=== PATIENT | male | born 1990 | race African-American/Black ===

== ENCOUNTER 2021-02-05 00:57 | Emergency (ER) | payer MEDICAID ==
[~2021-02-05] VITALS: Ht 180.3 cm; Wt 73.9 kg
[2021-02-05 01:01] VITALS: BP 143/96
--- NOTE | 2021-02-05 01:20 | NUR ---
PT KARRI, TAKEN TO JOZEF GALARZA
[2021-02-05] MEDS ORDERED: NACL 0.9% 1,000 ML IV ONE (01:40)
[2021-02-05 02:15] LABS: BASOPHILS % (AUTO) 0.7 % (0.0-2.0); EOSINOPHILS # (AUTO) 0.2 K/uL (0-0.4); EOSINOPHILS % (AUTO) 3.6 % (0.0-4.0); HEMOGLOBIN 13.9 g/dL (12.0-18.0); LYMPHOCYTES # (AUTO) 1.3 K/uL (2.0-11.5); LYMPHOCYTES % (AUTO) 23.4 % (20.5-51.1); MEAN CORPUSCULAR HEMOGLOBIN 32 pg (27-31); MEAN CORPUSCULAR HGB CONC 34 g/dL (33-37); MEAN CORPUSCULAR VOLUME 94.1 fL (80-94); MONOCYTES # (AUTO) 0.4 K/uL (0.8-1.0); NEUTROPHILS # (AUTO) 3.6 K/uL (1.8-7.7); NEUTROPHILS % (AUTO) 65.3 % (42.2-75.2); PLATELET COUNT (AUTO) 273 K/uL (140-450); RED BLOOD CELL COUNT(AUTO) 4.36 MIL/uL (4.20-6.10); RED CELL DISTRIBUTION WIDTH 14.2 % (11.6-13.7); WHITE BLOOD COUNT (AUTO) 5.6 K/uL (4.8-10.8)
[2021-02-05 02:35] LABS: ALBUMIN 4.2 g/dL (3.4-5.0); ANION GAP 10.6 (8-16); CARBON DIOXIDE 27.1 mmol/L (21-32); CREATININE 1.1 mg/dL (0.6-1.3); POTASSIUM 3.7 mmol/L (3.5-5.1); TOTAL BILIRUBIN 0.8 mg/dL (0.0-1.0)
[2021-02-05] MEDS ORDERED: LAM25 PO (04:18)
[2021-02-05 06:25] VITALS: BP 143/96
--- NOTE | 2021-02-05 06:25 | NUR ---
Patient discharged with v/s stable. Written and verbal after care instructions given and explained. Patient alert, oriented and verbalized understanding of instructions. Ambulatory with steady gait. All questions addressed prior to discharge. ID band removed. Patient advised to follow up with PMD. Rx of LAMICTAL given. Patient educated on indication of medication including possible reaction and side effects. Opportunity to ask questions provided and answered.
== END 2021-02-05 06:25 | disposition home or self-care (01) ==
LOC: MED 00:57
DX: R00.2 Palpitations (principal); F15.10 Other stimulant abuse, uncomplicated; F31.9 Bipolar disorder, unspecified; Z79.899 Other long term (current) drug therapy
CPT/HCPCS: 36415; 71045; 80053; 83690; 83880; 84484; 85025; 93005; 96360; 99285; J7030